=== PATIENT | male | born 1945 | race Caucasian/White ===

== ENCOUNTER → 2018-10-29 | Outpatient (CLI) | payer OTHER ==
[~2018-10-29] VITALS: Ht 188 cm; Wt 140.6 kg
[~2018-10-29] MED LIST: CARDIZEM CD240 MG PO; CORDARONE200 MG PO; DEMADEX20 MG PO; HYDROCODON-ACE1 EAC5 PO; HYSINGLA ER40 MG PO; IBUPROFEN 200200 M1 PO; JANUVIA50 MG PO; LASIX 20 MG TAB20 MG PO; LIPITOR10 MG PO; NEURONTIN 300300 M1 PO; PANTOPRAZOLE SO40 M1 PO; PRILOSEC20 MG PO; SYNTHROID137 MC1 PO; XARELTO15 MG PO; ZANAFLEX4 M1 PO
[2018-10-29 09:35] VITALS: BP 157/69
--- NOTE | 2018-10-29 10:13 | NUR ---
Pain Clinic Assessment: 1. History of Osteoarthritis: Left Lower Extremity Left Upper Extremity History of Rheumatoid Arthritis: 2. Height: 6 ft. 2 in. 188.0 cm. Weight: 310.0 lb. oz. 140.616 kg. Patient's BMI: 39.8 3. Vital Signs: BP: 157/69 Pulse: 61 Resp: 20 Temp: 02 Sat: 100 ECG Mon: 4. Pain Intensity: 5 5. Fall Risk: Dizziness: N Needs help standing or walking: N Fallen in the last 3 months: N Fall risk comments: 6. Patient on Blood Thinner: None 7. History of Hypertension: N 8. Opioid Therapy greater than 6 weeks: N Opiate Contract Signed: 9. Risk Assessment Tool Provided: 10. Functional Assessment Tool: 11. Recreational Drug Use: Never Drug Type: Tobacco Use: Never Smoker Tobacco Type: Amount or Packs/day: How Many Years: Alcohol Use: Yes Frequency: Monthly Quant: 1
--- NOTE | 2018-11-07 00:33 | HPC ---
[facility] [place] [address] PAIN MANAGEMENT CONSULTATION Name: IGOR TERRAZAS Room #: REG NAHUN Sanders.#: [id number] Admission: 10/29/18 ������������������ Attend Phys: Toshia Cramer MD Discharge: ������������������ Date of : 49 Report #: [id number] THIS REPORT FOR: //name// CC: Toshia Jim MD DATE OF SERVICE: 10/29/2018 CHIEF COMPLAINT: Chronic right and left knee pain. HISTORY: The patient is a 73-year-old gentleman who has been referred to the pain clinic for evaluation of chronic pain involving his knees. The patient states he has had dipv-zc-wxjy pain involving his knees for some time. This has been since about 2009. He notes that the pain is becoming more and more problematic at this juncture. He is unable to take nonsteroidal anti-inflammatory medications. He did have a GI bleed. Hemoglobin was down into the level of 5. Pain is worse when he is standing and when he walks a lot. Pain is better when he sits down. Described as continuous aching, rates as a 5/10. He has not had surgery in his knees. Denies any trauma to the knees. ALLERGIES: No known drug allergies. IVP DYE CAUSES mild nausea. CURRENT MEDICATIONS: Demadex 20 mg, Lipitor 10 mg, levothyroxine 137 mcg, tizanidine 4 mg at bedtime, amiodarone 200 mg, and diltiazem 240 mg. PAST MEDICAL HISTORY: 1. Anemia. 2. Atrial fibrillation with rapid ventricular response. 3. Gastrointestinal bleed. 4. Mild renal insufficiency. 5. Hypertension. 6. Congestive heart failure. 7. Sleep apnea. 8. Diabetes. 9. Ulcers. PAST SURGICAL HISTORY: Skin graft to the right in 1955. 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 REVIEW OF SYSTEMS: Generally good health, wears glasses, peptic ulcer, diabetes. PAIN CLINIC ASSESSMENT/PQRS: 1. History of osteoarthritis involving the left lower extremity as well as some [facility] [address] [place] [address] PAIN MANAGEMENT CONSULTATION Name: IGOR TERRAZAS Room #: REG NAHUN Martin#: [id number] Admission: 10/29/18 ������������������ Attend Phys: Toshia Cramer MD Discharge: ������������������ Date of : 49 Report #: [id number] in the right upper extremity. 2. Rheumatoid arthritis. The patient is not being treated for rheumatoid arthritis. 3. Height 6 feet 2 inches, weight 310 pounds, and BMI is 39.8. 4. Vital signs: Blood pressure of 157/69, pulse 61, respiratory rate 20, and room air saturation 100%. 5. Pain intensity 11/21. 6. Fall risk. The patient has not fallen in the last 3 months. 7. Blood thinner. The patient is not on a blood thinning medication. 8. Hypertension. The patient is being treated for hypertension. 9. Opioids greater than 6 weeks. The patient receives his pain medications through the pain clinic. 10. Risk assessment tool, low for opioid use. 11. Functional assessment tool, . 12. Recreational drug use: The patient denies. 13. Tobacco: The patient has never smoked. 14. Alcohol: The patient drinks alcoholic beverages on rare occasion. PHYSICAL EXAMINATION: GENERAL: The patient is a well-developed, well-nourished white male. Slightly somewhat obese. He is alert and oriented x 3. Affect is appropriate. Speech is fluent. HEENT: Normocephalic, atraumatic. Extraocular eye muscles intact. Sclerae nonicteric. Mucous membranes are moist. NECK: Without adenopathy or JVD. Upper extremity muscle strength is judged to be 5/5 for the major muscle groups in the upper extremity. The patient without significant scoliosis, kyphosis or lordosis. Lower extremity muscle strength is judged to be 5-/5 for the major muscle groups. The patient has pain and discomfort, particularly in the left knee. Walks with an antalgic gait. Notes pain and discomfort when prolonged standing on his left knee. IMPRESSION: 1. Chronic knee pain with osteoarthritic changes, zwib-hy-msdl on the left knee. 2. Anemia. 3. Atrial fibrillation with rapid ventricular response. 4. Gastrointestinal bleed. 5. Mild renal insufficiency. 6. Hypertension. 7. Congestive heart failure. 8. Sleep apnea. 9. Diabetes. 10. Ulcers. RECOMMENDATIONS: We discussed treatment options with the patient. At this juncture, I think it would be reasonable for the patient to try an opioid [address] [address] PAIN MANAGEMENT CONSULTATION Name: IGOR TERRAZAS Room #: REG CLMarsha SandersKailey#: [id number] Admission: 10/29/18 ������������������ Attend Phys: Toshia Cramer MD Discharge: ������������������ Date of : 47 Report #: [id number] medication. He is unable to take nonsteroidal anti-inflammatory medications secondary to the recent GI bleed that he has sustained. He will be provided [place] 10/325 one p.o. q.4 hours. We will have the patient consider Hysingla ER 40 mg or 38 mg daily. Hopefully, he would find that this medication would be helpful. He will also try gabapentin 300 mg 1 p.o. t.i.d. A script for hydrocodone 10 mg 1 p.o. q.4 hours total of 150 tablets have been dispensed. He will also try gabapentin, a script for 90 tablets has been written. The patient has been given a script with the name of the medication, Hysingla ER. He will check to see whether or not this would be covered by his insurance company. We would like to thank you for letting us participate in his care. We hope he continues to improve. ��������������������������������������������� <ELECTRONICALLY SIGNED> ���������������������������������������� By: Toshia Cramer MD ��������������������������������������������� 11/07/18 0033 [id number] Toshia Cramer MD /nt
== END ==
LOC: PAIN 06:54
DX: G89.29 Other chronic pain (principal); M17.12 Unilateral primary osteoarthritis, left knee; I48.91 Unspecified atrial fibrillation; I11.0 Hypertensive heart disease with heart failure; I50.9 Heart failure, unspecified; G47.30 Sleep apnea, unspecified; E11.9 Type 2 diabetes mellitus without complications; Z79.899 Other long term (current) drug therapy; Z91.041 Radiographic dye allergy status; Z79.891 Long term (current) use of opiate analgesic

== ENCOUNTER → 2019-01-07 | Outpatient (CLI) | payer OTHER ==
[~2019-01-07] VITALS: Ht 188 cm; Wt 149.7 kg
--- NOTE | ~2019-01-07 | HPC ---
[facility] [place] [address] PAIN MANAGEMENT CONSULTATION Name: IGOR TERRAZAS Room #: REG NAHUN SandersKailey#: [id number] Admission: 01/07/19 ������������������ Attend Phys: Toshia Cramer MD Discharge: ������������������ Date of : 47 Report #: [id number] THIS REPORT FOR: //name// CC: Toshia Jim DATE OF SERVICE: 01/07/2019 CHIEF COMPLAINT: Chronic right knee pain. FOLLOWUP HISTORY: The patient is a 73-year-old gentleman who has been followed in the pain clinic because of chronic pain. He has had problems with his knees over the years. At this juncture, he is enduring iewn-pw-worc pain. This has been problematic for the last 9 years. It started in about 2009. He has tried nonsteroidal anti-inflammatory medications. He is unable to take these at this juncture. He did have a GI bleed. His hemoglobin went down significantly, went down to the level of about 5 grams. He has been told not to take nonsteroidal anti-inflammatory medications. He has returned to the pain clinic. He has been provided hydrocodone and has found that this medication in conjunction with gabapentin have been beneficial. He returns today for renewal of his medication. He has noted some increased stress. His has been found to have rectal cancer. The thought is that it should respond well to chemotherapy and radiation. Not really a surgical option at this juncture because of the possible development of this well-healed scar formation and stenosis formation. He has returned today for renewal of his medications, feels that the medications are helpful. He has had no complication from their use. Rates his pain as a 5/10. Continues to work. ALLERGIES: No known drug allergies, IV DYE CAUSES MILD NAUSEA. MEDICATIONS: Demadex 20 mg, Lipitor 10 mg, levothyroxine 137 mcg, tizanidine 4 mg at bedtime, amiodarone 200 mg, diltiazem 240 mg. PAIN CLINIC ASSESSMENT AND PQRS. 1. History of osteoarthritis involving his left lower extremity and some involvement on the right as well. 2. Rheumatoid arthritis. The patient is not being treated for rheumatoid arthritis. 3. Height 6 feet 2 inches, weight 310 pounds. BMI is 39.8. 4. Vital Signs: Blood pressure 157/69, pulse 61, respiratory rate 20, room air saturations 100%. 5. Pain intensity 5/10. 6. Fall risk. The patient has not fallen in the last 3 months. 7. Blood thinner. The patient is not on a blood thinning medication. 8. Hypertension. The patient has been treated for hypertension. 9. Opioids greater [place] [address] [place] [address] PAIN MANAGEMENT CONSULTATION Name: IGOR TERRAZAS Room #: REG Marsha Martin#: [id number] Admission: 01/07/19 ������������������ Attend Phys: Toshia Cramer MD Discharge: ������������������ Date of : 49 Report #: [id number] 10. Risk assessment tool, low for opioid use. 11. Functional assessment tool . 12. Recreational drug use. The patient denies. 13. Tobacco: The patient has never smoked. 14. Alcohol: The patient drinks rare alcohol about once monthly. PHYSICAL EXAMINATION: GENERAL: The patient is a well-developed, well-nourished, somewhat obese white male. Appears his stated age. He is alert and oriented x 3. His affect is appropriate. Speech is fluent. HEENT: Normocephalic, atraumatic. Extraocular eye muscles intact. Sclerae nonicteric. Mucous membranes are moist. NECK: Without adenopathy or JVD. EXTREMITIES: Upper extremity muscle strength judged to be 5/5 for the major muscle groups in the upper extremity. The patient without significant scoliosis, kyphosis or lordosis. The patient has pain and discomfort in the left knee. Walks with an antalgic gait. Has complained of pain and discomfort in the left knee area. IMPRESSION: 1. Chronic pain secondary to osteoarthritis with ygbl-fc-rdpb discomfort in the left knee as well as some development in the right. 2. Anemia. 3. Atrial fibrillation with rapid ventricular response. 4. Gastrointestinal bleed. 5. Mild renal insufficiency. 6. Hypertension. 7. Congestive heart failure. 8. Sleep apnea. 9. Diabetes. 10. History of ulcers. RECOMMENDATIONS: We discussed treatment options with the patient. At this juncture, we will continue with his medications. He feels that the medications are helpful. We will continue with the gabapentin at 300 mg 1 p.o. t.i.d. Again, the patient is aware that opioid medications can be problematic in some patients. The efficacy can decrease over time secondary to development of tolerance. He is aware of this and feels that the medications are helpful. He is able to engage in activities, he would not be able to without their use. He states that he is considering surgery in the future. The health of his has been a disappointment. He will probably have to lose some weight prior to surgery. [facility] [address] [place] [address] PAIN MANAGEMENT CONSULTATION Name: IGOR TERRAZAS Room #: REG NAHUN Martin#: [id number] Admission: 01/07/19 ������������������ Attend Phys: Toshia Cramer MD Discharge: ������������������ Date of : 47 Report #: [id number] We would like to thank you for letting us participate in his care. We hope he continues to improve. ��������������������������������������������� ���������������������������������������� By: ��������������������������������������������� [id number] Toshia Cramer MD /ANATOLIY
[2019-01-07 12:45] VITALS: BP 178/84
== END ==
LOC: PAIN 11-19 06:44
DX: M17.11 Unilateral primary osteoarthritis, right knee (principal); D64.9 Anemia, unspecified; M25.562 Pain in left knee; N28.9 Disorder of kidney and ureter, unspecified; I11.0 Hypertensive heart disease with heart failure; I50.9 Heart failure, unspecified; I48.91 Unspecified atrial fibrillation; E11.9 Type 2 diabetes mellitus without complications; G47.30 Sleep apnea, unspecified; K92.2 Gastrointestinal hemorrhage, unspecified; Z87.11 Personal history of peptic ulcer disease; Z79.899 Other long term (current) drug therapy

== ENCOUNTER → 2019-02-11 | Outpatient (CLI) | payer OTHER ==
[~2019-02-11] VITALS: Ht 188 cm; Wt 156.2 kg
[~2019-02-11] MED LIST changes: +NEURONTIN600 MG PO
[2019-02-11 08:46] VITALS: BP 164/66
--- NOTE | 2019-02-11 08:51 | NUR ---
Pain Clinic Assessment: 1. History of Osteoarthritis: Left Lower Extremity Left Upper Extremity History of Rheumatoid Arthritis: Not Applicable 2. Height: 6 ft. 2 in. 188.0 cm. Weight: 344.4 lb. oz. 156.219 kg. Patient's BMI: 46.7 3. Vital Signs: BP: 164/66 Pulse: 69 Resp: 16 Temp: 02 Sat: 96 ECG Mon: 4. Pain Intensity: 2 w/ meds, 5-6 w/o 5. Fall Risk: Dizziness: N Needs help standing or walking: N Fallen in the last 3 months: N Fall risk comments: 6. Patient on Blood Thinner: None 7. History of Hypertension: N 8. Opioid Therapy greater than 6 weeks: N Opiate Contract Signed: 9. Risk Assessment Tool Provided: low-0 10. Functional Assessment Tool: 11. Recreational Drug Use: Never Drug Type: Tobacco Use: Never Smoker Tobacco Type: Amount or Packs/day: How Many Years: Alcohol Use: Yes Frequency: Quant:
--- NOTE | 2019-02-18 17:05 | HPC ---
[facility] [address] [address] PAIN MANAGEMENT CONSULTATION Name: IGOR TERRAZAS Room #: REG NAHUN SandersKailey#: [id number] Admission: 02/11/19 ������������������ Attend Phys: Toshia Cramer MD Discharge: ������������������ Date of : 47 Report #: [id number] THIS REPORT FOR: //name// CC: Toshia Jim DATE OF SERVICE: 02/11/2019 CHIEF COMPLAINT: Here for chronic knee pain. HISTORY: The patient is a 73-year-old gentleman who has been followed in the pain clinic. As you recall, he has severe pain involving his knees. He has dxvl-pj-lhra pain at this point. He has been having pain for about the last 9 years. At this point, he is contemplating surgery. His 's health continues to deteriorate. He is having a number of challenges. At this point, he is not able to undergo surgery to have knee replacements. He has returned today to renew his medications. He feels overall that these medications are helpful. They are not causing any problems with his sensorium. He is able to think clearly. Continues to work. ALLERGIES: No known drug allergies, IV DYE CAUSES NAUSEA, MILD. MEDICATIONS: Demadex 20 mg, Lipitor 10 mg, levothyroxine 137 mcg, tizanidine 4 mg at bedtime, amiodarone 200 mg, diltiazem 240 mg. PAIN CLINIC ASSESSMENT AND PQRS: 1. The patient has osteoarthritic changes with tphk-tx-jmpl in his knees on the left and right side. 2. Rheumatoid arthritis. The patient is not being treated for rheumatoid arthritis. 3. Height 6 feet 2 inches, weight 344 pounds, BMI is 46.7. 4. Vital Signs: Blood pressure 164/66, pulse 69, respiratory rate 16, room air saturation 96%. 5. Pain intensity 2, with medications 5-6 without medications. 6. Fall risk. The patient has not fallen in the last 3 months. 7. Blood thinner. The patient is not on a blood thinning medication. 8. Hypertension. The patient is not being treated for hypertension. 9. Opioids greater than 6 weeks. The patient receives medication from one source, the pain clinic. 10. Risk assessment tool, low for opioid use. 11. Functional assessment tool, . 12. Recreational drug use. The patient denies use of recreational drugs. 13. Tobacco: The patient denies use of tobacco. 14. Alcohol: The patient occasionally drinks alcoholic beverages. PHYSICAL EXAMINATION: [facility] [address] [place] [address] PAIN MANAGEMENT CONSULTATION Name: IGOR TERRAZAS Room #: REG [facility]#: [id number] Admission: 02/11/19 ������������������ Attend Phys: Toshia Cramer MD Discharge: ������������������ Date of : 47 Report #: [id number] GENERAL: The patient is a well-developed, well-nourished, somewhat obese white male. Appears his stated age. He is alert and oriented x 3. His affect is appropriate. Speech is fluent. HEENT: Normocephalic, atraumatic. Extraocular eye muscles intact. Sclerae nonicteric. Mucous membranes are moist. The patient is wearing glasses. NECK: Without adenopathy or JVD. Upper extremity muscle strength judged to be 5/5 for the major muscle groups in the upper extremity. The patient without significant scoliosis, kyphosis or lordosis. ABDOMEN: Nontender. Bowel sounds present. MUSCULOSKELETAL: Lower extremity, the patient has some edema in the lower extremities. Walks with a very stiff gait with very little movement of his knees with a left and right side moving gait. IMPRESSION: 1. Chronic pain secondary to osteoarthritis with jivy-vo-awcv discomfort in the knees as well as development of pain and discomfort on the right side. 2. Anemia. 3. History of atrial fibrillation with rapid ventricular response. 4. Gastroesophageal bleed. 5. Mild renal insufficiency. 6. Hypertension. 7. Congestive heart failure. 8. Sleep apnea. 9. Diabetes. 10. History of ulcers. RECOMMENDATIONS: We discussed treatment options with the patient. At this juncture, we will continue with his medications. He finds that the medications are helpful. We will continue to provide them to help with pain control. He is aware that opioid medications can be problematic in some patients. He is aware that opioid medications long-term can become less effective over time secondary to the use of development of tolerance. He is aware that 70,000 people last year as a result of overdose on medications. He feels his medications are working well. He keeps his medications in a guarded area. He is somewhat stressed because of the health challenges associated with his . She is about to undergo chemotherapy as well as radiation therapy. We would like to thank you for letting us participate in his care. We hope he continues to improve. ��������������������������������������������� <ELECTRONICALLY SIGNED> ���������������������������������������� By: Toshia Cramer MD ��������������������������������������������� 02/18/19 1705 [id number] Toshia Cramer MD /ANATOLIY
== END ==
LOC: PAIN 06:45
DX: M17.11 Unilateral primary osteoarthritis, right knee (principal); I11.0 Hypertensive heart disease with heart failure; I50.9 Heart failure, unspecified; D64.9 Anemia, unspecified; I48.91 Unspecified atrial fibrillation; N28.9 Disorder of kidney and ureter, unspecified; E11.9 Type 2 diabetes mellitus without complications; Z79.899 Other long term (current) drug therapy

== ENCOUNTER → 2020-07-20 | Outpatient (CLI) | payer OTHER | LOC: LAB 10:32 | PROVIDERS: ATTEND Nurse Practitioner | DX: U07.1 COVID-19 (principal) ==

== ENCOUNTER → 2020-09-07 | Outpatient (CLI) | payer OTHER | LOC: SJCVC 10:01 | PROVIDERS: ATTEND Internal Medicine | DX: R94.31 Abnormal electrocardiogram [ECG] [EKG] (principal); I44.7 Left bundle-branch block, unspecified; I48.0 Paroxysmal atrial fibrillation; E11.22 Type 2 diabetes mellitus with diabetic chronic kidney disease; I12.9 Hypertensive chronic kidney disease with stage 1 through stage 4 chronic kidney disease, or unspecified chronic kidney disease; N18.30 Chronic kidney disease, stage 3 unspecified; G47.33 Obstructive sleep apnea (adult) (pediatric); K27.4 Chronic or unspecified peptic ulcer, site unspecified, with hemorrhage; E78.5 Hyperlipidemia, unspecified; G89.29 Other chronic pain; Z96.653 Presence of artificial knee joint, bilateral; Z79.899 Other long term (current) drug therapy; Z86.16 Personal history of COVID-19; Z82.49 Family history of ischemic heart disease and other diseases of the circulatory system ==

== ENCOUNTER → 2020-09-15 | Outpatient (CLI) | payer OTHER | LOC: SJCVCIMAG 06:53 | PROVIDERS: ATTEND Internal Medicine | DX: I07.1 Rheumatic tricuspid insufficiency (principal); I11.9 Hypertensive heart disease without heart failure; I48.91 Unspecified atrial fibrillation; I42.9 Cardiomyopathy, unspecified; Z79.899 Other long term (current) drug therapy ==

== ENCOUNTER → 2020-09-27 | Outpatient (CLI) | payer OTHER | LOC: SJCVC 14:18 | PROVIDERS: ATTEND Internal Medicine Cardiovascular Disease | DX: I48.91 Unspecified atrial fibrillation (principal); R94.31 Abnormal electrocardiogram [ECG] [EKG]; I42.9 Cardiomyopathy, unspecified; I13.0 Hypertensive heart and chronic kidney disease with heart failure and stage 1 through stage 4 chronic kidney disease, or unspecified chronic kidney disease; E11.22 Type 2 diabetes mellitus with diabetic chronic kidney disease; N18.30 Chronic kidney disease, stage 3 unspecified; I50.30 Unspecified diastolic (congestive) heart failure; M10.9 Gout, unspecified; E66.9 Obesity, unspecified; Z79.899 Other long term (current) drug therapy; Z96.653 Presence of artificial knee joint, bilateral; Z82.49 Family history of ischemic heart disease and other diseases of the circulatory system ==

== ENCOUNTER → 2020-10-13 | Outpatient (CLI) | payer OTHER ==
[~2020-10-13] MED LIST changes: +JANUVIA 50 MG T50 M1; +JANUVIA 50 MG T50 M1 PO
== END ==
LOC: LAB 09:35
PROVIDERS: ATTEND Internal Medicine Cardiovascular Disease
DX: Z01.812 Encounter for preprocedural laboratory examination (principal); Z20.822 Contact with and (suspected) exposure to COVID-19

== ENCOUNTER → 2020-10-18 | Outpatient (CLI) | payer OTHER ==
[~2020-10-18] VITALS: Ht 188 cm; Wt 131.5 kg
[2020-10-18 07:04] VITALS: BP 112/62
[2020-10-18 07:24] LABS: ABSOLUTE NEUTROPHILS 4.3 thou/uL (1.4-8.2); BASOPHILS 0.7 % (0.0-2.0); EOSINOPHILS 1.5 % (0.0-3.0); LYMPHOCYTES 33.5 % (24.0-44.0); MCH 27.9 pg (26.0-34.0); MCHC 32.1 g/dL (28.0-37.0); MCV 86.9 fL (80.0-100.0); MONOCYTES 8.8 % (1.0-8.0); PLATELET COUNT 346 thou/uL (150-400); POLYS 55.5 % (36.0-66.0); RBC 3.22 mil/uL (4.50-6.00); RDW 16.3 % (10.5-14.5); WBC 7.7 thou/uL (4.0-11.0)
[2020-10-18 07:46] LABS: CALCIUM 8.5 mg/dL (8.5-10.1); CREATININE 2.3 mg/dL (0.7-1.3); POTASSIUM 3.6 mmol/L (3.5-5.1)
[2020-10-18 07:52] LABS: ALBUMIN 2.7 g/dL (3.4-5.0); TOTAL BILIRUBIN 0.6 mg/dL (0.2-1.0); TOTAL PROTEIN 7.3 g/dL (6.4-8.2)
[2020-10-18 08:05] LABS: INR 1.4; PROTIME 14.5 Seconds (9.3-11.4)
== END | disposition home or self-care (01) ==
LOC: CATH 06:31
PROVIDERS: ATTEND Internal Medicine Cardiovascular Disease
DX: I48.91 Unspecified atrial fibrillation (principal); I42.9 Cardiomyopathy, unspecified; I11.0 Hypertensive heart disease with heart failure; I50.30 Unspecified diastolic (congestive) heart failure; E11.9 Type 2 diabetes mellitus without complications; G47.33 Obstructive sleep apnea (adult) (pediatric); E66.01 Morbid (severe) obesity due to excess calories; Z98.890 Other specified postprocedural states; Z79.899 Other long term (current) drug therapy; Z79.01 Long term (current) use of anticoagulants
CPT/HCPCS: 62110; 62900

== ENCOUNTER 2021-02-03 11:57 | Inpatient (IN) | payer OTHER ==
[~2021-02-03] VITALS: Ht 188 cm; Wt 144.6 kg
--- NOTE | ~2021-02-03 | HC ---
[facility] [place] [address] CONSULTATION Name: IGOR TERRAZAS Room #: 455-P ADM IN M.R.#: [id number] Admission: 02/03/21 Attend Phys: Mathew Taylor MD Discharge: Date of : 49 Report #: [id number] THIS REPORT FOR: cc: Susan Walker DNP, Mary E. DNP Al-Absi, Ahmed I. MD ~ REASON FOR CONSULTATION: Fluid overload. REASON FOR THE PRESENTATION: Weight gain. HISTORY OF PRESENT ILLNESS: This is a very well known patient to me. He has chronic kidney disease and a baseline creatinine of around 2.5 as of 2018. He used to follow up with Dr. Smith in our clinic. Unfortunately, he has issues with noncompliance and had not seen her for some time. He presented with significant weight gain, lower extremity edema. He was found to have a hemoglobin of 6.8 on arrival. He was also found to have a creatinine value of 4.0. The patient has not been persistent and compliant with his diuretic regimen. He denies any obstructive symptoms. He claims that his job impedes him from being compliant with his diuretics, appointments. I was consulted to manage his fluid overload. PAST MEDICAL HISTORY: 1. Cardiomyopathy. 2. Atrial fibrillation. 3. Hyperlipidemia. 4. Diabetes mellitus. 5. Diabetic nephropathy. 6. Hypertension. 7. Hypothyroidism. 8. Chronic kidney disease with a baseline creatinine of around 2.5. 9. History of COVID-19 infection back in August 2020. 10. Obstructive sleep apnea. 11. Skin graft. 12. Bilateral knee replacement. 13. Status post cardioversion. ALLERGIES: CONTRAST. SOCIAL HISTORY: He denies drug or alcohol abuse. 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 MEDICATIONS: 1. Xarelto. 2. Atorvastatin. 3. [address] [facility] [address] [address] CONSULTATION Name: IGOR TERRAZAS Room #: 455-P [facility] IN ..#: [id number] Admission: 02/03/21 Attend Phys: Mathew Taylor MD Discharge: Date of : 47 Report #: [id number] 4. Gabapentin. 5. Torsemide. 6. Januvia. 7. Levothyroxine. 8. Amiodarone. REVIEW OF SYSTEMS: GENERAL: No fever or chills. CARDIOVASCULAR: Significant for dyspnea on exertion. PULMONARY: Dyspnea on exertion. GASTROINTESTINAL: No nausea or vomiting. GENITOURINARY: No frequency, no urgency. SKIN: Extensive edema and venous stasis. PHYSICAL EXAMINATION: VITAL SIGNS: Temperature 36.4, blood pressure 124/62, pulse rate is 58. NECK: No jugular venous distention. CHEST: Decreased air entry bilaterally. CARDIOVASCULAR: No rub detected. ABDOMEN: Obese. Significant abdominal wall edema. LOWER EXTREMITIES: Extensive anasarca. LABORATORY VALUES: Hemoglobin 7.2. Sodium 141, potassium 3.7, BUN is 79, creatinine is 3.4. ASSESSMENT, IMPRESSION, PLAN: 1. Acute kidney injury. 2. Chronic kidney disease. 3. Diffuse anasarca. 4. Cardiomyopathy. 5. Anemia. 6. Noncompliance with medical care. 7. Atrial fibrillation. 8. Hyperlipidemia. 9. Diabetes mellitus. 10. Hypertension. 11. The patient has significant anasarca due to noncompliance with medication, salt restriction. He claims that he cannot take diuretics regularly because of his job as an order entry technician. He is currently having some issues with GI bleeding and the anticoagulation was held. He has to be on Lasix drip. Creatinine seems to be improving. GI is evaluating. Watch blood pressure. 12. Watch volume status. 13. Watch electrolytes. 14. Daily body weight. [facility] [address] [place] [address] CONSULTATION Name: IGOR TERRAZAS Room #: 455-P ADM IN M.R.#: [id number] Admission: 02/03/21 Attend Phys: Mathew Taylor MD Discharge: Date of : 49 Report #: [id number] 15. Continue with the current regimen, might utilize other diuretics if he fails to obtain any volume status. By: 0741 [id number] Narcisa Chavez MD /nt
[2021-02-03 12:05] VITALS: BP 133/65
[2021-02-03 13:34] LABS: HEMOGLOBIN 6.8 gm/dL (14.0-18.0); WBC 5.9 thou/uL (4.0-11.0)
[2021-02-03 13:36] LABS: BASOPHILS 0.6 % (0.0-2.0); EOSINOPHILS 0.8 % (0.0-3.0); HEMATOCRIT 20.9 % (42.0-52.0); LYMPHOCYTES 20.7 % (24.0-44.0); MCH 29.2 pg (26.0-34.0); MCHC 32.7 g/dL (28.0-37.0); MCV 89.3 fL (80.0-100.0); MONOCYTES 10.2 % (1.0-8.0); PLATELET COUNT 317 thou/uL (150-400); POLYS 67.7 % (36.0-66.0); RBC 2.34 mil/uL (4.50-6.00)
[2021-02-03 13:49] LABS: CALCIUM 8.6 mg/dL (8.5-10.1); POTASSIUM 4.6 mmol/L (3.5-5.1)
[2021-02-03 13:54] LABS: ALBUMIN 3.1 g/dL (3.4-5.0); DIRECT BILIRUBIN 0.6 mg/dL (<0.1-0.2); TOTAL BILIRUBIN 1.1 mg/dL (0.2-1.0); TOTAL PROTEIN 6.2 g/dL (6.4-8.2)
[2021-02-03 13:59] LABS: INR 2.08; PROTIME 21.9 Seconds (10.5-12.1)
[2021-02-03 14:37] VITALS: BP 121/63; BP 126/58; BP 128/66; BP 131/68
[2021-02-03 17:33] LABS: FOLIC ACID 19.5 ng/mL (8.6-58.9)
[2021-02-03 17:36] LABS: AMYLASE 45 U/L (25-115); LIPASE 73 U/L (73-393)
[2021-02-03 21:38] VITALS: BP 129/54
[2021-02-03 21:58] VITALS: BP 138/78
[2021-02-03 22:18] VITALS: BP 133/62
[2021-02-03 22:18] LABS: % SATURATION 7 % (20-39); IRON 23 ug/dL (65-175); TIBC 338 ug/dL (250-450)
--- NOTE | 2021-02-04 01:02 | NUR ---
Pt admitted from ED approx 2200 with Anemia. A/OX4, VSS.Denies pain on assessment. Pt has a non productive cough and dyspnea on exertion,non pitting edema to BLE,pulses 2+. Up with SBA,weak. Skin intact. AFIB on telemetry. Fall education reinforced;pt agrees to call for help as needed. Resting quietly at this time,will continue to monitor pt.
[2021-02-04 06:16] LABS: ABSOLUTE NEUTROPHILS 3.7 thou/uL (1.4-8.2); HEMOGLOBIN 6.7 gm/dL (14.0-18.0); WBC 5.2 thou/uL (4.0-11.0)
[2021-02-04 06:17] LABS: EOSINOPHILS 1.5 % (0.0-3.0); HEMATOCRIT 20.2 % (42.0-52.0); LYMPHOCYTES 16.9 % (24.0-44.0); MCH 29.3 pg (26.0-34.0); MCHC 33.3 g/dL (28.0-37.0); MONOCYTES 10.4 % (1.0-8.0); PLATELET COUNT 273 thou/uL (150-400); POLYS 70.2 % (36.0-66.0); RBC 2.29 mil/uL (4.50-6.00); RDW 18.4 % (10.5-14.5)
[2021-02-04 06:23] LABS: CALCIUM 7.7 mg/dL (8.5-10.1); CREATININE 3.9 mg/dL (0.7-1.3); MAGNESIUM 2.5 mg/dL (1.8-2.4); POTASSIUM 3.8 mmol/L (3.5-5.1)
[2021-02-04 06:33] LABS: ALBUMIN 2.6 g/dL (3.4-5.0); DIRECT BILIRUBIN 0.6 mg/dL (<0.1-0.2); TOTAL PROTEIN 5.9 g/dL (6.4-8.2)
[2021-02-04 08:00] VITALS: BP 113/54
--- NOTE | 2021-02-04 10:41 | EKG ---
[address] [employer] [place] [address] ELECTROCARDIOGRAM REPORT Name: IGOR TERRAZAS Room #: 455-P ADM IN M.R.#: [id number] Admission: 02/03/21 Attend Phys: Mathew Taylor MD Discharge: Date of : 47 Report #: [id number] [facility] ED Test Date: 2021-02-03 Test Time: 12:43:57 Pat Name: IGOR TERRAZAS Department: Room: [facility] Gender: M Pole Peeler: JCHAIJEANNETTE : 1945 Requested By: Saúl Martinez Order Number: [id number] MD: Willem Vaz Measurements Intervals [place] Rate: 46 P: [place]: QRS: -41 QRSD: 143 T: -68 QT: 625 QTc: 547 Interpretive Statements Atrial fibrillation Occasional premature ventricular complexes Left bundle branch block Compared to ECG 03/22/2018 07:54:40 Sinus rhythm no longer present Electronically Signed On 02-04-2021 10:40:56 CDT by Willem Vaz [email or web address] <ELECTRONICALLY SIGNED> By: Willem Vaz MD, [facility] 02/04/21 1040 1243 1243 Willem Vaz MD, [facility] /EPI
[2021-02-04 12:38] VITALS: BP 118/57; BP 128/63
[2021-02-04 14:00] VITALS: BP 118/61
[2021-02-04 15:15] VITALS: BP 111/54
[2021-02-04 16:50] VITALS: BP 128/63
--- NOTE | 2021-02-04 18:45 | NUR ---
PT IS A&O*1, STAND BY ASSISTANCE. ROOM AIR. NO PAIN COMPLAINED. 1 UINT BLOOD GIVEN. IV LASIX DRIP STARTED. A- FIB ON TELE AND BRADYCARDIAC: HR 50-60. WILL KEEP MONITOR PATIENT'S LAB, UO AND VITAL SIGNS.
[2021-02-04 19:43] VITALS: BP 133/66
[2021-02-05 00:07] LABS: IgG 980 mg/dL (603-1613)
[2021-02-05 05:29] VITALS: BP 118/57
[2021-02-05 06:22] LABS: ALBUMIN 2.5 g/dL (3.4-5.0); CALCIUM 7.7 mg/dL (8.5-10.1); CREATININE 3.4 mg/dL (0.7-1.3); PHOSPHORUS 4.1 mg/dL (2.5-4.9); POTASSIUM 3.7 mmol/L (3.5-5.1)
[2021-02-05 07:08] LABS: HAV IgM AB (ANTI-HAV IgM) Negative (Negative); HEPATITIS B SURFACE AG Negative (Negative); HEPATITIS C VIRUS AB <0.1 (0.0-0.9)
[2021-02-05 07:30] VITALS: BP 124/62
[2021-02-05 07:49] LABS: HEMATOCRIT 22.3 % (42.0-52.0); HEMOGLOBIN 7.2 gm/dL (14.0-18.0); MCH 28.8 pg (26.0-34.0); MCHC 32.3 g/dL (28.0-37.0); MCV 89.1 fL (80.0-100.0); RBC 2.5 mil/uL (4.50-6.00); RDW 18.3 % (10.5-14.5); WBC 5.4 thou/uL (4.0-11.0)
--- NOTE | 2021-02-05 08:00 | NUR ---
PROGRESS PT A/O X4 UP WITH SBA, LUNGS CLEAR, ABDOMEN SOFT WITH POSITIVE BS. SKIN WARM DRY INTACT, LOWER EXTREMETIES WITH FIRM 4 PLUS EDEMA. IV TO RF WITH LASIX GTT INFUSING AT 10CC/HR. VOIDING PROFUSE AMOUNTS OF CLEAR YELLOW URINE. PT GETTING A LITTLE IRRITABLE TOWARDS MORNING HE WAS AWAKE URINATING ALL NIGHT. ACCUCHECKS CONTINUE. AWAITING STOOL FOR OCCULT BLOOD. PT REMAINS ON CLEAR LIQUIDS AND TO HAVE EGD SATURDAY.
[2021-02-05 09:18] LABS: AMP/METHAMP Negative (Negative); BARBITURATES Negative (Negative); BENZODIAZEPINES Negative (Negative); COCAINE Negative (Negative); METHADONE Negative (Negative); OPIATES POSITIVE (Negative); PCP Negative (Negative)
--- NOTE | 2021-02-05 10:43 | NUR ---
PT ARRIVED THE 459 AT PRIOR NET COORDINATOR AND GET REPORT ON NET COORDINATOR NURSE PRANAV. PT IS A&O*3, 2L OXYGEN, CONGESTIVE COUGHING, OSTOMY DRESS, TUBE AND BAG ARE INTACT. NSR ON TELE. NO FEVER AT THIS TIME. NO PAIN COMPLAIN. NO WOUNDS BESIDE THE OSTOMY SITE. SCD APPLIED ON LOWER NIR LEGS. ADDMISSION EDUCATION IS DONE WITH PT'S TIARA DE LEON. CHEST CT IS DONE. GIVING IV ABX PER ORDER. PAGED AT 10:00 TO RECONFIRM AZITTHROMYXIN ADMINISTRATION PER PHARMACY REQUEST. BED ALARM IS ON. REINFORCE CALL LIGHT USE EDUCATION AND PT COMMUNICATES UNDERSTAND. WILL KEEP MONITOR PATIENT'S SAFETY AND VS.
[2021-02-05 14:06] LABS: ANA INTERPRETATION Negative (Negative)
--- NOTE | 2021-02-05 15:58 | NUR ---
PT IS A&O*4, ROOM AIR, GET UP BY LIP. WEIGHT GET ON STADING SACLE AND REQUESTED PER DAY. IV LASIX DRIP GOING AT 10ML/HR. IV IRON GIVEN. HGB 7.2 THIS MORNING. URINE CULTURE AND STOOL SAMPLE COLLECTED FOR OCCULT BLOOD. NO PAIN COMPLIAN. A-FIB ON TELE. EGD SCHEDULE ON 02/06 AND NPO AFTER MIDNIGHT TONIGHT. CONSENT FORM IN PT'S CHART, NEED SIGN WITH GI DOCTOR. WILL KEEP MONITOR PATIENT'S SAFETY, UO, LABS AND VITAL SIGNS.
[2021-02-05 16:09] VITALS: BP 119/50
[2021-02-05 20:21] VITALS: BP 136/57
--- NOTE | 2021-02-06 02:25 | NUR ---
PT CARE ASSUMED AT 1900 WITH PT IN BED WATCHING TV.PT IS A/O X4.PT IS ON BEDREST .PT IS INCONTINENT AND HAS A DIETZ CATHETER IN PLACE.PT C/O PANIC AND ASKED TO SIT UP AT BEDSIDE WHICH HELPED CALM HER DOWN.PT C/O PAIN ON LT UE AND PAIN MANAGED WITH NORCO WITH RELEIF.PT HAS LYPHEDEMA WRAP ON BLE.WILL CONTINUE TO MONITOR
--- NOTE | 2021-02-06 02:31 | NUR ---
PT CARE ASSUMED WITH PT IN BED WATCHING TV AT 1900.PT IS A/O X4.PT IS UP X1 ASSIST.PT USES A URINAL TO VOID.PT HAS BLE EDEMA AND ON LASIX DRIP.PT NPO MIDNIGHT FOR EGD TODAY.PT DENIED ANY PAIN .WILL CONTINUE TO MONITOR
[2021-02-06 05:39] LABS: HEMATOCRIT 22.8 % (42.0-52.0); HEMOGLOBIN 7.4 gm/dL (14.0-18.0); MCH 28.8 pg (26.0-34.0); MCHC 32.4 g/dL (28.0-37.0); MCV 88.9 fL (80.0-100.0); RBC 2.57 mil/uL (4.50-6.00); RDW 18.5 % (10.5-14.5); WBC 7.6 thou/uL (4.0-11.0)
[2021-02-06 05:56] LABS: ALBUMIN 2.6 g/dL (3.4-5.0); CALCIUM 7.8 mg/dL (8.5-10.1); PHOSPHORUS 3.3 mg/dL (2.5-4.9); POTASSIUM 3.3 mmol/L (3.5-5.1)
[2021-02-06 07:35] VITALS: BP 142/62
[2021-02-06 10:49] LABS: INR 1.16; PROTIME 12.6 Seconds (10.5-12.1)
[2021-02-06 12:06] LABS: CERULOPLASMIN 36.7 mg/dL (16.0-31.0)
--- NOTE | 2021-02-06 14:35 | NUR ---
Assess due to consult for diet education. Pt admitted with fluid overload, noncompliance with lasix medication. Acute on chronic kidney failure. Has 4+ BLE edema. Wt up 28 lb from reported wt at admit. On lasix GTT. EGD today and possible colonoscopy soon. Will address any nutrition education needs in next 1-2 days at more appropriate time.
[2021-02-06 15:50] VITALS: BP 128/60
--- NOTE | 2021-02-06 16:01 | NUR ---
PT ADMITTED RELATED TO ANEMIA. CM REVIEWED CHART AND SPOKE WITH CARE TEAM. CM MET WITH PT AT BEDSIDE THIS DAY. PT APPEARED TO BE A&O X4. CM ROLE INTRODUCED. PT INDICATED HE RESIDES IN A HOUSE WITH HIS SPOUSE WITH 3 STEPS TO ENTER AND A FULL FLIGHT TO BEDROOMS. 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 PT INDICATED HE HAS A CANE FROM [employer]NEE [employer]PLAC[employer] IN THE PAST THAT HE CAN USE IF NEEDED. PT INDICATED NO RECENT HH HX. PT INDICATED HE PLANS TO DC HOME ONCE MEDICALLT STABLE. CM FOLLOWING REGARDING DC PLANNING.
--- NOTE | 2021-02-06 16:25 | NUR ---
PT ALERT AND ORIENTED TIME FOUR. VSS. LASIX GTT INFUSING PER ORDER. PT NPO THIS MORNING FOR EGD TOLERATED WELL. PT DENIES PAIN/SOA. PT TOLERATES MEDS AND MEALS. PT UP TO RESTROOM WITH STANDBY ASSIST. PT SLOWLY [facility].
[2021-02-06 20:40] VITALS: BP 125/46
[2021-02-07 02:49] LABS: HEMATOCRIT 23.4 % (42.0-52.0); HEMOGLOBIN 7.6 gm/dL (14.0-18.0); MCH 29.2 pg (26.0-34.0); MCHC 32.6 g/dL (28.0-37.0); MCV 89.7 fL (80.0-100.0); RBC 2.6 mil/uL (4.50-6.00); RDW 19.2 % (10.5-14.5); WBC 9.7 thou/uL (4.0-11.0)
[2021-02-07 03:16] LABS: ALBUMIN 2.4 g/dL (3.4-5.0); CALCIUM 7.6 mg/dL (8.5-10.1); CREATININE 2.8 mg/dL (0.7-1.3); PHOSPHORUS 3.5 mg/dL (2.5-4.9); POTASSIUM 3.2 mmol/L (3.5-5.1); TOTAL BILIRUBIN 1.7 mg/dL (0.2-1.0)
--- NOTE | 2021-02-07 04:37 | NUR ---
ASSUMED PT CARE 193. PT IS ALERT AND ORIENTED X4. LASIX STILL INFUSING PER ODRERS. PT USES A URINAL. PT TOLERATIONG RA. PT DID NOT C/O PAIN. VS ARE STABLE. INFORMED ADJUNCT MATHEMATICS INSTRUCTOR OF PT'S LOW POTASSIUM LEVEL 3.2 THIS MORNING; NO ACTION WAS TAKEN. PT DID NOT HAVE A BM ON THIS SHIFT. FALL PREACUTIONS IN PLACE WITH CALL LIGHT WITHIN REACH. WILL CONTINUE TO MONITOR.
[2021-02-07 08:05] VITALS: BP 131/51
[2021-02-07 09:26] VITALS: BP 131/51
--- NOTE | 2021-02-07 09:49 | NUR ---
Pt AxOX4. No c/o pain. Bilateral lower extremities has +3 pitting edema. Left FA IV running 10ml/lasix. Pt is urinating clear yellow large anounts. On 2 gm low sodium diet. Takes neds whole. Diabetic with order for ACHS. Pt is a one person assist up to BSC. Negative for covid, PT is 12.6, and K is 3.2. Eating well remains a fall risk. Bed in low position. Call light within reach. Will continue to moniter throughout shift.
[2021-02-07] MEDS ORDERED: DEMADEX20 MG PO (14:13)
[2021-02-07 14:42] VITALS: BP 131/51
--- NOTE | 2021-02-07 16:45 | NUR ---
CARE TEAM INDICATED THAT PT IS MEDICALLY STABLE TO DC HOME THIS DAY. PT IS TO DC HOME TO SELF CARE. NO OTHER CM INTERVENTION INDICATED. CASE CLOSED.
== END 2021-02-07 17:08 | disposition home or self-care (01) | DRG 682 ==
LOC: ER 11:57 → EROBS 17:16 → 4W 17:16
PROVIDERS: Hospitalist; Internal Medicine; Nurse Practitioner; Student in an Organized Health Care Education/Training Program; ADMIT Internal Medicine; ATTEND Internal Medicine
PROC: 30233N1 Transfusion of Nonautologous Red Blood Cells into Peripheral Vein, Percutaneous Approach (ICD-10-PCS; 2021-02-03)
PROC: 30233N1 Transfusion of Nonautologous Red Blood Cells into Peripheral Vein, Percutaneous Approach (ICD-10-PCS; 2021-02-04)
PROC: 0DJ08ZZ Inspection of Upper Intestinal Tract, Via Natural or Artificial Opening Endoscopic (ICD-10-PCS; principal; 2021-02-06)
DX: N17.9 Acute kidney failure, unspecified (principal); I50.23 Acute on chronic systolic (congestive) heart failure; I13.0 Hypertensive heart and chronic kidney disease with heart failure and stage 1 through stage 4 chronic kidney disease, or unspecified chronic kidney disease; I48.20 Chronic atrial fibrillation, unspecified; Z68.41 Body mass index [BMI] 40.0-44.9, adult; D62 Acute posthemorrhagic anemia; K92.2 Gastrointestinal hemorrhage, unspecified; I42.9 Cardiomyopathy, unspecified; G47.33 Obstructive sleep apnea (adult) (pediatric); E11.22 Type 2 diabetes mellitus with diabetic chronic kidney disease; E86.0 Dehydration; E78.5 Hyperlipidemia, unspecified; E11.42 Type 2 diabetes mellitus with diabetic polyneuropathy; E66.01 Morbid (severe) obesity due to excess calories; Z96.653 Presence of artificial knee joint, bilateral; R74.01 Elevation of levels of liver transaminase levels; Z20.822 Contact with and (suspected) exposure to COVID-19; Z91.14 Patient's other noncompliance with medication regimen; Z79.01 Long term (current) use of anticoagulants; Z86.16 Personal history of COVID-19; Z79.899 Other long term (current) drug therapy; Z91.041 Radiographic dye allergy status; Z79.84 Long term (current) use of oral hypoglycemic drugs
CPT/HCPCS: 10045; 62110; 62900; 70005

== ENCOUNTER → 2021-03-22 | Outpatient (CLI) | payer OTHER ==
[~2021-03-22] MED LIST changes: +DILTIAZEM 24HR240 M1 PO
== END ==
LOC: SJCVC 14:21
PROVIDERS: ATTEND Internal Medicine
DX: R94.31 Abnormal electrocardiogram [ECG] [EKG] (principal); I44.7 Left bundle-branch block, unspecified; I48.11 Longstanding persistent atrial fibrillation; I42.0 Dilated cardiomyopathy; I13.0 Hypertensive heart and chronic kidney disease with heart failure and stage 1 through stage 4 chronic kidney disease, or unspecified chronic kidney disease; I50.9 Heart failure, unspecified; N18.4 Chronic kidney disease, stage 4 (severe); G47.33 Obstructive sleep apnea (adult) (pediatric); E78.5 Hyperlipidemia, unspecified; E11.22 Type 2 diabetes mellitus with diabetic chronic kidney disease; Z86.16 Personal history of COVID-19; Z79.899 Other long term (current) drug therapy; Z72.89 Other problems related to lifestyle; Z88.8 Allergy status to other drugs, medicaments and biological substances

== ENCOUNTER → 2021-03-24 | Outpatient (CLI) | payer OTHER | LOC: LAB 06:33 | PROVIDERS: ATTEND Student in an Organized Health Care Education/Training Program | DX: Z01.812 Encounter for preprocedural laboratory examination (principal); Z20.822 Contact with and (suspected) exposure to COVID-19 ==

== ENCOUNTER → 2021-03-27 | Outpatient (CLI) | payer OTHER ==
[~2021-03-27] VITALS: Ht 188 cm; Wt 131.5 kg
--- NOTE | 2021-03-28 16:06 | PATH ---
[facility] [place] [address] [place] [address] PATHOLOGY RPT PROCEDURE Name: VIKASH TERRAZAS Room #: REG [facility] M..#: [id number] Admission: 03/27/21 Date of : 49 Discharge: Report #: [id number] Path Case #: [id number] [facility] Accession Number: [id number] . 01 Material submitted: . PART A: colon - ASCENDING COLON POLYP XS 2. Modifiers: ascending PART B: colon - TRANSVERSE COLON POLYP XS 3. Modifiers: transverse . 01 Clinical history: . COLONOSCOPY ANEMIA HX OF POLYPS COLON POLYPS DTS/COLONOSCOPY/ANEMIA, HX OF POLYPS, TUBULAR ADENOM... . 02 Diagnosis: A. Polyps x2, ascending colon polyp, endoscopic biopsy: - One fragment of tubular adenoma; negative for high-grade dysplasia. - One fragment of hyperplastic polyp; negative for dysplasia. . B. Polyp x 3, transverse colon polyp, endoscopic biopsy: - One fragment with tubular adenoma; negative for high-grade dysplasia. - Two fragments showing hyperplastic changes; negative for dysplasia. (IUV:pit; 03/28/2021) QTP 03/28/2021 1216 Local . 02 Electronically signed: . Jena Radford MD, Pathologist NPI- [id number] . 01 Gross description: . A. The specimen is submitted in formalin, labeled "Vikash Terrazas, ascending colon polyp". Received are 2 segments of pale connor tissue ranging in size from 0.4 to 0.6 cm in maximum dimensions. The specimen is submitted entirely in cassette A1. . B. The specimen is submitted in formalin, labeled "Vikash Terrazas, transverse colon polyp". Received are 3 segments of pale connor tissue ranging in size from 0.3 to 0.6 cm in maximum dimensions. The specimen is submitted entirely in cassette B1. ([facility]; 03/27/2021) NRI/NRI 03/27/20212033 Local . 02 Pathologist provided ICD-10: D12.2, K63.5, D12.3 . 02 CPT . [id number], [id number] [place] [address] PATHOLOGY RPT PROCEDURE Name: VIKASH TERRAZAS TIMOTHY Room #: REG CLMarsha Martin#: [id number] Admission: 03/27/21 Date of : 49 Discharge: Report #: [id number] Path Case #: [id number] Specimen Comment: Donaldo courtesy copy of this report has been sent to [phone] Specimen Comment: [phone] Specimen Comment: Report sent to / DR ALONSO Performed at: [address], [place] [id number] MD Jeremie Brewster MD Phone: [phone] Performed at: [address] [id number] MD Jena Radford MD Phone: [phone]
== END | disposition home or self-care (01) ==
LOC: GI 09:31
PROVIDERS: ATTEND Internal Medicine Gastroenterology
DX: D64.9 Anemia, unspecified (principal); D12.2 Benign neoplasm of ascending colon; D12.3 Benign neoplasm of transverse colon; I13.0 Hypertensive heart and chronic kidney disease with heart failure and stage 1 through stage 4 chronic kidney disease, or unspecified chronic kidney disease; E11.22 Type 2 diabetes mellitus with diabetic chronic kidney disease; I50.30 Unspecified diastolic (congestive) heart failure; I48.91 Unspecified atrial fibrillation; N18.2 Chronic kidney disease, stage 2 (mild); E78.5 Hyperlipidemia, unspecified; G47.33 Obstructive sleep apnea (adult) (pediatric); M10.9 Gout, unspecified; Z86.010 Personal history of colon polyps; Z98.890 Other specified postprocedural states; Z79.899 Other long term (current) drug therapy; Z96.653 Presence of artificial knee joint, bilateral; Z91.041 Radiographic dye allergy status
CPT/HCPCS: 62110; 62900

== ENCOUNTER → 2021-06-06 | Outpatient (CLI) | payer OTHER | LOC: SJCVCIMAG 08:50 | PROVIDERS: ATTEND Internal Medicine | DX: I08.1 Rheumatic disorders of both mitral and tricuspid valves (principal); I48.21 Permanent atrial fibrillation; I42.0 Dilated cardiomyopathy; I12.9 Hypertensive chronic kidney disease with stage 1 through stage 4 chronic kidney disease, or unspecified chronic kidney disease; N18.4 Chronic kidney disease, stage 4 (severe); E11.22 Type 2 diabetes mellitus with diabetic chronic kidney disease; G47.33 Obstructive sleep apnea (adult) (pediatric); E78.5 Hyperlipidemia, unspecified; E11.9 Type 2 diabetes mellitus without complications; U07.1 COVID-19; Z88.8 Allergy status to other drugs, medicaments and biological substances; M10.9 Gout, unspecified; G47.30 Sleep apnea, unspecified; Z79.899 Other long term (current) drug therapy; Z72.89 Other problems related to lifestyle; Z82.49 Family history of ischemic heart disease and other diseases of the circulatory system ==

== ENCOUNTER → 2021-09-01 | Outpatient (CLI) | payer OTHER ==
[~2021-09-01] VITALS: Ht 188 cm; Wt 133.2 kg
[~2021-09-01] MED LIST changes: +ELIQUIS5 MG PO; +NEURONTIN300 MG PO; +PACERONE200 MG PO; +UNISOM25 MG PO
[2021-09-01 07:51] VITALS: BP 156/85
--- NOTE | 2021-09-01 08:54 | TEE ---
[facility] [place] [address] TRANSESOPHAGEAL ECHOCARDIOGRAM Name: IGOR TERRAZAS Room #: PRE NAHUN Sanders#: [id number] Admission: Attend Phys: Willem Vaz MD, Discharge: Date of : 49 Report #: [id number] THIS REPORT FOR: cc: Babatunde Sierra Andrea RNP Lundgren, Craig H. MD [facility] ~ APPROVED REPORT Study performed: 09/01/2021 08:03:54 EXAM: Transesophageal Echocardiogram Patient Location: Out-Patient Status: routine BSA: 2.56 HR: 110 bpm BP: 123/79 mmHg Rhythm: Atrial Fibrillation Other Information Study Quality: Good Indications Atrial Fibrillation Pre-Ablation. Hx: CHF, CM, Cardioversion. Procedure After obtaining informed consent, patient underwent transesophageal echo in the [employer]. Type of Sedation : Conscious Sedation Sedation was administered by Leah Horta RN. Sedation start time: 819 Case end Time: 824 Sedation was achieved intravenously with: Versed (3) Fentanyl (50) Transesophageal probe was inserted and advanced into esophagus without difficulty by Willem Vaz MD. Echo enhancement indication: R/O Septal defect. Echo enhancement agent administered: Agitated Saline The MAGDALENA was performed without complications. Throughout the procedure, the blood pressure, pulse oximetry, cardiac rhythm, and rate were monitored. The patient tolerated the procedure without adverse effects. Recovery from conscious sedation was uneventful and vital signs were stable. [facility] [address] [place] [address] TRANSESOPHAGEAL ECHOCARDIOGRAM Name: IGOR TERRAZAS Room #: PRE [facility]#: [id number] Admission: Attend Phys: Willem Vaz, Discharge: Date of : 49 Report #: [id number] Left Ventricle Left ventricle is dilated. There is global hypokinesis of the left ventricle. There is normal left ventricular wall thickness. Left ventricular systolic function is moderately decreased. LVEF is 40-45%. Right Ventricle The right ventricle is normal size. Right ventricle is hypokinetic. Atria Biatrial enlargement. No thrombus is visualized in the left atrium or appendage. No shunting noted with contrast bubble injection. Aortic Valve The aortic valve is normal in structure. No aortic regurgitation is present. There is no aortic valvular stenosis. Mitral Valve The mitral valve is normal in structure. Mild-moderate mitral regurgitation. No evidence of mitral valve stenosis. Tricuspid Valve The tricuspid valve is normal in structure. Mild tricuspid regurgitation. Pulmonic Valve The pulmonary valve is normal in structure. Trace pulmonic regurgitation. Great Vessels The aortic root is normal in size. The ascending aorta is normal in size. IVC is normal in size and collapses >50% with inspiration. Pericardium There is no pericardial effusion. <Conclusion> Left ventricular systolic function is moderately decreased. There is global hypokinesis of the left ventricle. LVEF is 40-45%. Biatrial enlargement. No thrombus is visualized in the left atrium or appendage. No shunting noted with contrast bubble injection. [facility] [address] [place] [address] TRANSESOPHAGEAL ECHOCARDIOGRAM Name: IGOR TERRAZAS Room #: PRE [facility]#: [id number] Admission: Attend Phys: Willem Vaz, Discharge: Date of : 49 Report #: [id number] The aortic valve is normal in structure. No aortic regurgitation or stenosis The mitral valve is normal in structure. Mild-moderate mitral regurgitation. There is no pericardial effusion. <ELECTRONICALLY SIGNED> By: Willem Vaz MD, FACC 09/01/2153 2 2 Willem Vaz MD, FACC /INF
== END | disposition home or self-care (01) ==
LOC: CATH 07:17
PROVIDERS: ATTEND Internal Medicine
DX: I48.19 Other persistent atrial fibrillation (principal); I08.1 Rheumatic disorders of both mitral and tricuspid valves; I13.0 Hypertensive heart and chronic kidney disease with heart failure and stage 1 through stage 4 chronic kidney disease, or unspecified chronic kidney disease; E11.22 Type 2 diabetes mellitus with diabetic chronic kidney disease; N18.2 Chronic kidney disease, stage 2 (mild); I50.9 Heart failure, unspecified; I42.9 Cardiomyopathy, unspecified; E78.5 Hyperlipidemia, unspecified; M10.9 Gout, unspecified; K21.9 Gastro-esophageal reflux disease without esophagitis; E03.9 Hypothyroidism, unspecified; G47.33 Obstructive sleep apnea (adult) (pediatric); Z98.890 Other specified postprocedural states; Z79.899 Other long term (current) drug therapy; Z96.653 Presence of artificial knee joint, bilateral; Z79.01 Long term (current) use of anticoagulants; Z20.822 Contact with and (suspected) exposure to COVID-19

== ENCOUNTER 2021-09-04 06:31 | Observation (INO) | payer OTHER ==
[~2021-09-04] VITALS: Ht 188 cm; Wt 136.1 kg
[~2021-09-04 06:31] MED LIST changes: -PACERONE200 MG PO
[2021-09-04 07:23] VITALS: BP 117/53
[2021-09-04 07:50] LABS: ABSOLUTE NEUTROPHILS 4.4 thou/uL (1.4-8.2); BASOPHILS 0.7 % (0.0-2.0); EOSINOPHILS 1.8 % (0.0-3.0); HEMATOCRIT 31.6 % (42.0-52.0); HEMOGLOBIN 10.4 gm/dL (14.0-18.0); LYMPHOCYTES 24.8 % (24.0-44.0); MCHC 32.9 g/dL (28.0-37.0); MCV 88.2 fL (80.0-100.0); MONOCYTES 13.7 % (1.0-8.0); PLATELET COUNT 260 thou/uL (150-400); RBC 3.59 mil/uL (4.50-6.00); RDW 15.6 % (10.5-14.5); WBC 7.4 thou/uL (4.0-11.0)
[2021-09-04 07:53] LABS: CALCIUM 9.1 mg/dL (8.5-10.1); CREATININE 2.6 mg/dL (0.7-1.3); POTASSIUM 3.6 mmol/L (3.5-5.1)
[2021-09-04 07:57] LABS: TOTAL BILIRUBIN 1.1 mg/dL (0.2-1.0); TOTAL PROTEIN 7.2 g/dL (6.4-8.2)
[2021-09-04 08:00] LABS: APTT 33.1 Seconds (24.5-32.8); INR 1.12; PROTIME 12.1 Seconds (10.5-12.1)
[2021-09-04 20:05] VITALS: BP 130/76
[2021-09-04 23:54] VITALS: BP 135/70
[2021-09-05 04:31] VITALS: BP 142/69
--- NOTE | 2021-09-05 06:50 | NUR ---
PATIENT CARES ASSUMED AT SHIFT CHANGE. PATIENT WAS ASSESSED AND MEDS WHERE PASSED. AMIO CONTINUES. MONITORING OF TELE DONE. ROUNDS DONE,
[2021-09-05 08:00] VITALS: BP 152/71
[2021-09-05] MEDS ORDERED: PACERONE200 MG PO (08:20)
[2021-09-05 09:03] VITALS: BP 152/71
[2021-09-05 10:07] VITALS: BP 152/71
== END 2021-09-05 10:42 | disposition home or self-care (01) ==
LOC: CATH 06:31 → 2N 13:38 → CATH 13:39 → 2N 13:39 → CATH 14:27 → 2N 09-05 10:42
PROVIDERS: ADMIT Internal Medicine Cardiovascular Disease; ATTEND Internal Medicine Cardiovascular Disease
DX: I48.91 Unspecified atrial fibrillation (principal); Z20.822 Contact with and (suspected) exposure to COVID-19; I12.9 Hypertensive chronic kidney disease with stage 1 through stage 4 chronic kidney disease, or unspecified chronic kidney disease; E11.22 Type 2 diabetes mellitus with diabetic chronic kidney disease; N18.9 Chronic kidney disease, unspecified; G47.33 Obstructive sleep apnea (adult) (pediatric); M10.9 Gout, unspecified; E66.9 Obesity, unspecified; Z23 Encounter for immunization; Z68.36 Body mass index [BMI] 36.0-36.9, adult; Z79.01 Long term (current) use of anticoagulants; Z79.899 Other long term (current) drug therapy
CPT/HCPCS: 10797; 62110; 62900; 65020; 65040; 70005